=== PATIENT | male | born 1990 | race Caucasian/White ===

== ENCOUNTER 2017-08-23 17:44 | Emergency (ER) | payer OTHER ==
[~2017-08-23] VITALS: Ht 172.7 cm; Wt 160.0 kg
[2017-08-23 18:27] VITALS: BP 141/86
[2017-08-23] MEDS ORDERED: CefTRIAXone SODIUM 1 GM/VIAL IM ONE (18:30)
[2017-08-23] MEDS ORDERED: AZITHROMYCIN 250 MG TABLET PO ONE (18:30)
== END 2017-08-23 18:49 | disposition home or self-care (01) ==
LOC: EMS 17:45
DX: N34.2 Other urethritis (principal); R03.0 Elevated blood-pressure reading, without diagnosis of hypertension; F17.210 Nicotine dependence, cigarettes, uncomplicated
CPT/HCPCS: 87491; 87591; 96372; 99284; J0696